=== PATIENT | male | born 1985 | race Two or more races ===

== ENCOUNTER 2019-02-21 10:47 | Inpatient (IN) | payer SELFPAY ==
[~2019-02-21] VITALS: Ht 157.5 cm; Wt 94.8 kg
[2019-02-21] MEDS ORDERED: SODIUM CHLORIDE 0.9% 1,000 ML IV ONE (13:57)
[2019-02-21] MEDS ORDERED: ONDANSETRON HCL 4MG/2ML INJ IV ONE (14:15)
[2019-02-21 14:41] LABS: HEMATOCRIT. 47.2 % (42.0-52.0); HEMOGLOBIN. 15.9 g/dL (14.0-18.0); MEAN CORPUSCULAR HEMOGLOBIN 30.1 pg (28.0-32.0); MEAN CORPUSCULAR VOLUME 89.5 fL (80.0-94.0); MEAN PLATELET VOLUME 8.3 fl (7.4-10.4); PLATELET 295 x1000/uL (130-400); RED BLOOD CELL COUNT 5.27 mill/uL (4.7-6.1); RED CELL DISTRIBUTION WIDTH 13.6 % (11.6-14.6)
[2019-02-21 14:45] LABS: CHLORIDE 105 mEq/L (98-107); PROTHROMBIN TIME 10.7 sec (9.6-11.0)
[2019-02-21] MEDS ORDERED: CEFOXITIN SODIUM 2 G in DEXT 5% WATER 100 ML IV SCH (14:45)
[2019-02-21 14:53] LABS: CLARITY URINE CLEAR (CLEAR); COLOR URINE YELLOW (YELLOW); PROTEIN URINE 1+ (NEGATIVE); SPECIFIC GRAVITY URINE 1.032 (1.005-1.030)
[2019-02-21 14:54] LABS: KETONES URINE TRACE (NEGATIVE); OCCULT BLOOD URINE NEGATIVE (NEGATIVE)
[2019-02-21 14:55] LABS: LEUKOCYTE ESTERASE URINE NEGATIVE (NEGATIVE); NITRITE URINE NEGATIVE (NEGATIVE)
[2019-02-21] MEDS ORDERED: CEFTRIAXONE 1 G PREMIX 50 ML IV ONE (15:30)
[2019-02-21] MEDS ORDERED: METRONIDAZOLE 500 MG PREMIX 100 ML IV ONE (15:30)
[2019-02-21 15:45] LABS: PLATELET ESTIMATE NORMAL
[2019-02-21] MEDS ORDERED: MORPHINE SULFATE 4 MG/ML CPJ (NOT FOR IM USE) IV STA (16:25)
[2019-02-21] MEDS ORDERED: SKIN ADHESIVE 0.7 GM EA TOP ONE (16:45)
[2019-02-21] MEDS ORDERED: BUPIVACAINE HCL 0.5% (5MG/ML) 50ML ONE (16:46)
[2019-02-21] MEDS ORDERED: ONDANSETRON HCL 4MG/2ML INJ IV PRN (17:00)
[2019-02-21] MEDS ORDERED: MORPHINE SULFATE 4 MG/ML CPJ (NOT FOR IM USE) IV PRN (17:00)
[2019-02-21] MEDS ORDERED: HYDROCODONE/ACETAMINOPHEN 5/325MG TABLET PO PRN ×2 (17:00)
[2019-02-21] MEDS ORDERED: FENTANYL CITRATE/PF 50MCG/ML 2ML VIAL ONE (18:30)
[2019-02-21] MEDS ORDERED: PROPOFOL 200MG/20ML VIAL IV ONE (18:31)
[2019-02-21] MEDS ORDERED: MIDAZOLAM HCL 2 MG/2 ML VIAL ONE (18:31)
[2019-02-21] MEDS ORDERED: LIDOCAINE HCL/PF 1% 10 MG/ML 5ML VIAL ONE (18:32)
[2019-02-21] MEDS ORDERED: SUCCINYLCHOLINE CHLORIDE 200MG/10ML IV ONE (18:32)
[2019-02-21] MEDS ORDERED: ROCURONIUM BROMIDE 10MG/ML VIAL 5ML IV ONE (18:33)
[2019-02-21] MEDS ORDERED: ESMOLOL HCL 10MG/ML 10ML VIAL IV ONE ×2 (18:40→19:28)
[2019-02-21] MEDS ORDERED: GLYCOPYRROLATE 0.2 MG/ML 2ML VIAL ONE (19:17)
[2019-02-21] MEDS ORDERED: NEOSTIGMINE METHYLSULFATE 1MG/ML 10 ML VIAL ONE (19:17)
[2019-02-21] MEDS ORDERED: KETOROLAC 30MG/ML VIAL IV PRN (20:15)
[2019-02-21] MEDS: HYDROMORPHONE HCL/PF 2MG/ML CPJ IV PRN ×2 (20:29→21:27)
[2019-02-21] MEDS ORDERED: GUAIFENESIN 200MG/10ML SUGAR FREE UDC PO PRN (21:15)
[2019-02-21] MEDS ORDERED: IPRATROPIUM/ALBUTEROL 0.5-3(2.5)MG/3ML NEB NEB PRN (21:15)
[2019-02-21] MEDS ORDERED: ACETAMINOPHEN 325MG TABLET PO PRN (21:15)
[2019-02-21] MEDS ORDERED: MAGNESIUM/ALUMINUM HYDROXIDE/SIMETHICONE 30ML UDC PO PRN (21:15)
[2019-02-21] MEDS ORDERED: DOCUSATE SODIUM 100MG CAPSULE PO PRN (21:15)
[2019-02-21] MEDS ORDERED: DIPHENHYDRAMINE 50MG/ML VIAL IV PRN (21:15)
[2019-02-21] MEDS ORDERED: CLONIDINE 0.1MG TABLET PO PRN (21:15)
[2019-02-21] MEDS ORDERED: ZOLPIDEM TARTRATE 5MG TABLET PO PRN (21:15)
[2019-02-21] MEDS ORDERED: IOHEXOL-300 100 ML BOTTLE ONE (21:54)
[2019-02-22 00:23] VITALS: BP 115/73
[2019-02-22] MEDS ORDERED: SODIUM CHLORIDE 0.9% 1000ML BAG (SEPSIS BOLUS) IV SCH (02:11)
[2019-02-22 02:20] LABS: *BARBITURATES SCREEN URINE NEGATIVE (NEGATIVE); *BENZODIAZEPINES SCREEN URINE PRESUMTIVE POSITIVE (NEGATIVE); *COCAINE SCREEN URINE NEGATIVE (NEGATIVE); METHADONE URINE SCREEN NEGATIVE (NEGATIVE)
[2019-02-22 02:21] LABS: *AMPHETAMINES SCREEN URINE NEGATIVE (NEGATIVE); CANNABINOID URINE SCREEN NEGATIVE (NEGATIVE); OPIATES URINE SCREEN PRESUMTIVE POSITIVE (NEGATIVE); PHENCYCLIDINE URINE SCREEN NEGATIVE (NEGATIVE)
[2019-02-22] MEDS: SODIUM CHLORIDE 0.9% 1,000 ML IV SCH ×2 (03:01→12:11)
[2019-02-22 04:00] VITALS: BP 105/55
[2019-02-22] MEDS: AZITHROMYCIN 500 MG in DEXT 5% WATER 250 ML IV SCH (04:38)
[2019-02-22] MEDS: MORPHINE SULFATE 2 MG/ML CPJ (NOT FOR IM USE) IV PRN ×2 (04:55→09:53)
[2019-02-22] MEDS: SODIUM CHLORIDE 0.9% INJ 3ML FLUSH IVF SCH ×3 (05:01→23:02)
[2019-02-22 07:26] LABS: HEMATOCRIT. 36.5 % (42.0-52.0); HEMOGLOBIN. 12.5 g/dL (14.0-18.0); MEAN CORPUSCULAR HEMOGLOBIN 30.8 pg (28.0-32.0); MEAN CORPUSCULAR VOLUME 90.2 fL (80.0-94.0); MEAN PLATELET VOLUME 8.3 fl (7.4-10.4); PLATELET 218 x1000/uL (130-400); RED BLOOD CELL COUNT 4.05 mill/uL (4.7-6.1); RED CELL DISTRIBUTION WIDTH 13.6 % (11.6-14.6)
[2019-02-22 07:43] LABS: CHLORIDE 112 mEq/L (98-107)
[2019-02-22 08:00] VITALS: BP 117/67
[2019-02-22] MEDS: ASCORBIC ACID 500 MG TABLET PO SCH ×2 (08:54→20:07)
[2019-02-22] MEDS: METRONIDAZOLE 500 MG PREMIX 100 ML IV SCH ×3 (08:54→20:07)
[2019-02-22] MEDS: ACETAMINOPHEN 325MG TABLET PO PRN ×2 (08:55→18:00)
[2019-02-22] MEDS ORDERED: FAMOTIDINE 40MG TABLET PO SCH (09:00)
[2019-02-22] MEDS: FAMOTIDINE 20MG TABLET PO SCH ×2 (09:58→20:07)
[2019-02-22 12:00] VITALS: BP 103/60
[2019-02-22 16:00] VITALS: BP 112/78
[2019-02-22] MEDS: CEFTRIAXONE 1 G PREMIX 50 ML IV SCH (16:03)
[2019-02-22 16:09] LABS: PLATELET ESTIMATE NORMAL
[2019-02-22 20:00] VITALS: BP 106/71
[2019-02-22] MEDS: ONDANSETRON HCL 4MG/2ML INJ IV PRN (23:02)
[2019-02-23] VITALS: BP 110/70
[2019-02-23] MEDS: AZITHROMYCIN 500 MG in DEXT 5% WATER 250 ML IV SCH (02:06)
[2019-02-23] MEDS: MORPHINE SULFATE 2 MG/ML CPJ (NOT FOR IM USE) IV PRN (02:31)
[2019-02-23] MEDS: ONDANSETRON HCL 4MG/2ML INJ IV PRN (03:04)
[2019-02-23] MEDS: METRONIDAZOLE 500 MG PREMIX 100 ML IV SCH ×3 (03:10→20:50)
[2019-02-23] MEDS: SODIUM CHLORIDE 0.9% 1,000 ML IV SCH ×2 (03:17→14:10)
[2019-02-23] MEDS: DEXT 5%/0.45% NACL KCL 20MEQ/L 1,000 ML IV SCH ×3 (03:30→23:00)
[2019-02-23] MEDS: SODIUM CHLORIDE 0.9% INJ 3ML FLUSH IVF SCH ×3 (05:51→22:00)
[2019-02-23 08:00] VITALS: BP 124/82
[2019-02-23] MEDS ORDERED: DOCUSATE SODIUM 100MG CAPSULE PO PRN (10:15)
[2019-02-23] MEDS: FAMOTIDINE 20MG TABLET PO SCH ×2 (10:19→20:29)
[2019-02-23] MEDS: ASCORBIC ACID 500 MG TABLET PO SCH ×2 (10:19→20:29)
[2019-02-23 12:00] VITALS: BP 137/91
[2019-02-23 16:00] VITALS: BP 119/85
[2019-02-23] MEDS: CEFTRIAXONE 1 G PREMIX 50 ML IV SCH (18:31)
[2019-02-23 20:00] VITALS: BP 124/82
[2019-02-23] MEDS: ACETAMINOPHEN 325MG TABLET PO PRN (20:29)
[2019-02-24] VITALS: BP 118/81
[2019-02-24] MEDS: AZITHROMYCIN 500 MG in DEXT 5% WATER 250 ML IV SCH (02:16)
[2019-02-24] MEDS: SODIUM CHLORIDE 0.9% 1,000 ML IV SCH (03:48)
[2019-02-24] MEDS: METRONIDAZOLE 500 MG PREMIX 100 ML IV SCH (03:48)
[2019-02-24 04:00] VITALS: BP 120/84
[2019-02-24] MEDS: SODIUM CHLORIDE 0.9% INJ 3ML FLUSH IVF SCH (05:43)
[2019-02-24 08:00] VITALS: BP 120/86
[2019-02-24 10:47] VITALS: BP 120/86
== END 2019-02-24 11:45 | disposition home or self-care (01) | DRG 710 ==
LOC: ER 10:47 → OR 16:46 → ENRESERV 16:59 → CANRESERV 16:59 → EDBEDREQSVC 21:41 → ENRESERV 22:34 → 7WST 23:27
PROVIDERS: ADMIT Internal Medicine; ATTEND Internal Medicine
PROC: 0DTJ4ZZ Resection of Appendix, Percutaneous Endoscopic Approach (ICD-10-PCS; principal; 2019-02-21)
DX: A41.9 Sepsis, unspecified organism (principal); E44.1 Mild protein-calorie malnutrition; E66.9 Obesity, unspecified; K35.80 Unspecified acute appendicitis; E11.9 Type 2 diabetes mellitus without complications; Z68.38 Body mass index [BMI] 38.0-38.9, adult
CPT/HCPCS: 36415; 71045; 74177; 80053; 80305; 81003; 83036; 85025; 88304; 96365; 99285; J0330; J0456; J0696; J1170; J1200; J1885; J2250; J2270; J2405; J2704; J2710; J3010; J3490; J7030; J7060; J7070; Q9967